=== PATIENT | female | born 1980 | race Two or more races ===

== ENCOUNTER 2016-12-16 13:08 | Emergency (ER) | payer OTHER ==
[~2016-12-16] VITALS: Ht 162.6 cm; Wt 74.8 kg
[~2016-12-16 13:08] MED LIST: CLON0.5T3 PO; DESV50TA PO; ZOLP5TAB4 PO
--- NOTE | 2016-12-16 13:49 | EKG ---
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
[2016-12-16 13:51] LABS: NEG OBC UR NEG; POS OBC UR POS
--- NOTE | 2016-12-16 14:00 | RAD ---
EXAM: Chest, single view. HISTORY: Pain. COMPARISON: 07/30/2016. FINDINGS: A frontal view of the chest is obtained. There is no infiltrate, effusion or pneumothorax. The heart is normal in size. IMPRESSION: No acute pulmonary finding.
[2016-12-16 14:01] LABS: BACTERIA,URINE FEW /HPF (0-FEW); BILIRUBIN,URINE NEGATIVE (NEG); GLUCOSE,URINE NEGATIVE (NEG); NITRITE,URINE NEGATIVE (NEG); PH,URINE 5.5; PROTEIN,URINE NEGATIVE (NEG-TRACE); SQUAMOUS EPITHELIAL CELL,UR MOD /LPF; UROBILINOGEN,URINE 0.2 mg/dL (0.2 mg/dL); WBC,URINE 0 /HPF (0-4)
[2016-12-16] MEDS ORDERED: ASPIRIN 325 MG TABLET PO ONE (14:15)
[2016-12-16] MEDS ORDERED: IBUP-1060 PO (15:09)
--- NOTE | 2016-12-16 15:09 | PHYS DOC ---
Past Medical History Past Medical History: Anxiety, Depression, Other Additional Past Medical Histor: panic attacks Past Surgical History: Other Additional Past Surgical Histo: right leg ORIF Alcohol Use: None Drug Use: None Adult General Chief Complaint Chief Complaint: CHEST PAIN [facility] HPI 35-year-old female who states she's presenting with chest pain that has been worsening for the last several days. She describes it as pleuritic type chest pain worse with deep breathing. She describes it being under her left breast. Patient denies any significant health problems. She currently rates her pain a 6 out of 10. Patient has not taken anything for her symptoms. She states she is an occasional smoker. She denies any history of premature cardiac in her mom and father. Review of Systems Review of Systems Constitutional: Denies fever or chills [] Eyes: Denies change in visual acuity, redness, or eye pain [] HENT: Denies nasal congestion or sore throat [] Respiratory: Denies cough or shortness of breath [] Cardiovascular: No additional information not addressed in HPI [] GI: Denies abdominal pain, nausea, vomiting, bloody stools or diarrhea [] : Denies dysuria or hematuria [] Musculoskeletal: Denies back pain or joint pain [] Integument: Denies rash or skin lesions [] Neurologic: Denies headache, focal weakness or sensory changes [] Endocrine: Denies polyuria or polydipsia [] Current Medications Current Medications Current Medications Medications (Trade) Dose Ordered Sig/[facility] Start Time Stop Time Status Last Admin Dose Admin Aspirin (Karma Aspirin) 325 mg 1X ONCE 12/16/16 14:15 12/16/16 14:16 DC 12/16/16 14:06 325 MG Allergies Allergies Allergies Coded Allergies Type Severity Reaction Last Updated Verified No Known Drug Allergies 04/14/14 No Physical Exam Physical Exam Constitutional: Well developed, well nourished, no acute distress, non-toxic appearance. [] HENT: Normocephalic, atraumatic, bilateral external ears normal, oropharynx moist, no oral exudates, nose normal. [] Eyes: PERRLA, EOMI, conjunctiva normal, no discharge. [] Neck: Normal range of motion, no tenderness, supple, no stridor. [] Cardiovascular:Heart rate regular rhythm, no murmur [] Lungs & Thorax: Bilateral breath sounds clear to auscultation [] Abdomen: Bowel sounds normal, soft, no tenderness, no masses, no pulsatile masses. [] Skin: Warm, dry, no erythema, no rash. [] Back: No tenderness, no CVA tenderness. [] Extremities: No tenderness, no cyanosis, no clubbing, ROM intact, no edema. [] Neurologic: Alert and oriented X 3, normal motor function, normal sensory function, no focal deficits noted. [] Psychologic: Affect normal, judgement normal, mood normal. [] Current Patient Data Vital Signs Vital Signs Date Time Temp Pulse Resp B/P Pulse Ox O2 Delivery O2 Flow Rate FiO2 12/16/16 15:11 71 16 91/57 100 Room Air 12/16/16 13:10 98.2 98.2 Lab Values Laboratory Tests Test 12/16/16 13:35 12/16/16 14:25 Urine Collection Type Void Urine Color Yellow Urine Clarity Clear Urine pH 5.5 Urine Specific [place] 1.010 Urine Protein Negativemg/dL (NEG-TRACE) Urine Glucose (UA) Negativemg/dL (NEG) Urine Ketones (Stick) Negativemg/dL (NEG) Urine Blood Large (NEG) Urine Nitrite Negative (NEG) Urine Bilirubin Negative (NEG) Urine Urobilinogen Dipstick 0.2mg/dL (0.2 mg/dL) Urine Leukocyte Esterase Negative (NEG) Urine RBC 3-5/HPF (0-2) Urine WBC 0/HPF (0-4) Urine Squamous Epithelial Cells Mod/LPF Urine Bacteria Few/HPF (0-FEW) Urine Mucus Mod/LPF Urine Test Negative (NEG) POC Troponin I 0.00ng/ml (<0.08) EKG EKG EKG is interpreted by me shows a sinus rhythm with a rate of 59 bpm. There are no acute ST findings. This is a nonischemic EKG. Radiology/Procedures Radiology/Procedures Portable one view of the chest does not reveal an acute cardiopulmonary abnormality as interpreted by me. Course & Med Decision Making Course & Med Decision Making Pertinent Labs and Imaging studies reviewed. (See chart for details) This 35-year-old female that had some significant chest pain is almost fully resolved after my reassessment will be discharged home to follow closely with her primary care doctor. Believe her symptoms are likely inflammatory in etiology. She does not have significant cardiac risk factors. She is an occasional smoker and for this reason I did recommend that she follow closely with her primary care doctor who can recommend further workup including stress testing. I did state if she develops any worsening of her pain to return to the ER immediately. She is very agreeable with this plan. A serum troponin drawn here was negative. She was discharged without incident with prescription for motrin. Dragon Disclaimer Dragon Disclaimer This electronic medical record was generated, in whole or in part, using a voice recognition dictation system. Departure Departure Impression: Primary Impression: Chest pain Disposition: HOME, SELF-CARE Admitting Physician: Other Condition: STABLE Referrals: NO PCP (PCP) Patient Instructions: Chest Wall Pain, [id number] Additional Instructions: Please take your motrin as needed for your chest pain. Follow up with your primary doctor in the next 2-3 days regarding your recent chest pain. Return to the ER if you develop any worsening of your symptoms. Scripts Ibuprofen 800 Mg [id number] Mg PO PRN Q6HRS PRN INFLAMMATION #20 TAB Prov:JAMEY AREVALO DO 12/16/16 JAMEY AREVALO DO Dec 16, 2016 15:09
[2016-12-16 15:11] VITALS: BP 91/57
== END 2016-12-16 15:17 | disposition home or self-care (01) ==
LOC: ER 13:08
DX: R07.1 Chest pain on breathing (principal); F17.200 Nicotine dependence, unspecified, uncomplicated; F32.9 Major depressive disorder, single episode, unspecified; F41.0 Panic disorder [episodic paroxysmal anxiety]
CPT/HCPCS: 71010; 81001; 81025; 84484; 93005; 99285-25

== ENCOUNTER 2018-01-25 23:35 | Emergency (ER) | payer SELFPAY, OTHER ==
[2018-01-26] MEDS: HYDROcodone/APAP 7.5/325MG 1 TAB TABLET PO (00:43)
== END 2018-01-26 00:44 | disposition home or self-care (01) ==
LOC: ER 23:35
DX: M54.41 Lumbago with sciatica, right side (principal); G89.29 Other chronic pain; F32.9 Major depressive disorder, single episode, unspecified; F41.0 Panic disorder [episodic paroxysmal anxiety]
CPT/HCPCS: 99283

== ENCOUNTER 2018-04-15 19:27 | Emergency (ER) | payer SELFPAY ==
[2018-04-15] MEDS: HYDROcodone/APAP 5/325MG 1 TAB TABLET PO (19:50)
== END 2018-04-15 19:56 | disposition home or self-care (01) ==
LOC: ER 19:27
DX: M77.9 Enthesopathy, unspecified (principal); Z79.891 Long term (current) use of opiate analgesic
CPT/HCPCS: 29125; 99283

== ENCOUNTER 2018-09-22 07:27 | Emergency (ER) | payer SELFPAY ==
[~2018-09-22] VITALS: Ht 157.5 cm; Wt 74.8 kg
[~2018-09-22 07:27] MED LIST changes: +CLON0.5T11 PO; -CLON0.5T3 PO; +CYCL10TA2 PO; +IBUP-1060 PO; +NAPR-514 PO; +TRAM50TA PO; -ZOLP5TAB4 PO; +ZOLP5TAB5 PO
[2018-09-22 07:37] VITALS: BP 104/62
--- NOTE | 2018-09-22 08:25 | RAD ---
Right elbow 3 views. HISTORY: Pain radiating towards proximal and distal arm, right elbow pain 3 views were taken of the right elbow. There is no fracture or dislocation or acute osseous abnormality. IMPRESSION: 1. Negative right elbow. Electronically signed by: Redd Josue MD (09/22/2018 8:22 AM) [facility]
[2018-09-22] MEDS ORDERED: KETOROLAC 60 MG/2 ML INJ. IM ONE (08:30)
[2018-09-22] MEDS ORDERED: methylPREDNISolone SOD SUCC PF 125 MG/2 ML VIAL. IM ONE (08:30)
[2018-09-22] MEDS ORDERED: TRAM50TA PO (09:24)
[2018-09-22] MEDS ORDERED: PRED20TA PO (09:24)
[2018-09-22] MEDS ORDERED: IBUP-1007 PO (09:24)
--- NOTE | 2018-09-22 09:24 | PHYS DOC ---
Past Medical History Past Medical History: Anxiety, Depression, Other Additional Past Medical Histor: panic attacks Past Surgical History: Other Additional Past Surgical Histo: Right leg ORIF Alcohol Use: None Drug Use: None Adult General Chief Complaint Chief Complaint: WRIST PAIN HPI HPI Patient is a 37 year old female presented to ER today for evaluation of right elbow pain, right forearm pain since waking up this morning. Patient denies any injury. Patient denies any fever, no weakness or numbness in her extremity. 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 She says she had been chopping food at work. Patient described the pain is aching in nature, burning sensation. She denies any neck pain. Review of Systems Review of Systems Constitutional: Denies fever or chills [] Eyes: Denies change in visual acuity, redness, or eye pain [] HENT: Denies nasal congestion or sore throat [] Respiratory: Denies cough or shortness of breath [] Cardiovascular: No additional information not addressed in HPI [] GI: Denies abdominal pain, nausea, vomiting, bloody stools or diarrhea [] : Denies dysuria or hematuria [] Musculoskeletal: RIGHT FOREARM , ELBOW PAIN. Integument: Denies rash or skin lesions [] Neurologic: Denies headache, focal weakness or sensory changes [] Endocrine: Denies polyuria or polydipsia [] All other systems were reviewed and found to be within normal limits, except as documented in this note. Current Medications Current Medications Current Medications Medications (Trade) Dose Ordered Sig/[facility] Start Time Stop Time Status Last Admin Dose Admin Ketorolac Tromethamine (Toradol Im) 60 mg 1X ONCE 09/22/18 08:30 09/22/18 08:31 DC 09/22/18 07:57 60 MG Methylprednisolone Sodium Succinate (SOLU-Medrol 125MG VIAL) 125 mg 1X ONCE 09/22/18 08:30 09/22/18 08:31 DC 09/22/18 07:57 125 MG Allergies Allergies Allergies Coded Allergies Type Severity Reaction Last Updated Verified No Known Drug Allergies 04/14/14 No Physical Exam Physical Exam Constitutional: Well developed, well nourished, no acute distress, non-toxic appearance. [] HENT: Normocephalic, atraumatic, bilateral external ears normal, oropharynx moist, no oral exudates, nose normal. [] Eyes: PERRLA, EOMI, conjunctiva normal, no discharge. [] Neck: Normal range of motion, no tenderness, supple, no stridor. [] Cardiovascular:Heart rate regular rhythm, no murmur [] Lungs & Thorax: Bilateral breath sounds clear to auscultation [] Abdomen: Bowel sounds normal, soft, no tenderness, no masses, no pulsatile masses. [] Skin: Warm, dry, no erythema, no rash. [] Back: No tenderness, no CVA tenderness. [] Extremities: The right forearm, right elbow is tender to palpation, there is no swelling, no redness. There is strong radial and ulnar pulses. There is no focal neurovascular deficit. The forearm muscle is tender to touch. Neurologic: Alert and oriented X 3, normal motor function, normal sensory function, no focal deficits noted. [] Psychologic: Affect normal, judgement normal, mood normal. [] Current Patient Data Vital Signs Vital Signs Date Time Temp Pulse Resp B/P (MAP) Pulse Ox O2 Delivery O2 Flow Rate FiO2 09/22/18 07:37 98.1 53 18 104/62 (76) 99 Room Air 98.1 EKG EKG [] Radiology/Procedures Radiology/Procedures [][facility] [address] [facility] [place] [address] IMAGING REPORT Signed PATIENT: CUCO REN ACCOUNT: [id number] : 1980 LOCATION: ER AGE: 37 SEX: F EXAM STATUS: REG ER ORD. PHYSICIAN: HUSSEIN AMEZCUA DO REASON: RIGHT ELBOW PAIN PROCEDURE: ELBOW RIGHT 3V Right elbow 3 views. HISTORY: Pain radiating towards proximal and distal arm, right elbow pain 3 views were taken of the right elbow. There is no fracture or dislocation or acute osseous abnormality. IMPRESSION: 1. Negative right elbow. Electronically signed by: Redd Alvarado MD (09/22/2018 8:22 AM) [facility] DICTATED and SIGNED BY: REDD ALVARADO MD DATE: 09/22/18820 Course & Med Decision Making Course & Med Decision Making Pertinent Labs and Imaging studies reviewed. (See chart for details) [] Dragon Disclaimer Dragon Disclaimer This electronic medical record was generated, in whole or in part, using a voice recognition dictation system. Departure Departure Impression: Primary Impression: Myalgia Disposition: 01 HOME, SELF-CARE Condition: STABLE Referrals: NO PCP (PCP) FOLLOW UP WITH YOUR FAMILY DOCTOR NEXT WEEK FOR REEVALAUTION. Patient Instructions: Myalgia, Adult Scripts Ibuprofen (IBUPROFEN) 600 Mg Tablet 600 MG PO PRN Q8HRS PRN for INFLAMMATION, #30 TAB Prov: HUSSEIN AMEZCUA DO 09/22/18 Tramadol Hcl (TRAMADOL HCL) 50 Mg Tablet 1 MG PO QID PRN for PAIN, #15 TAB 0 Refills Prov: HUSSEIN AMEZCUA DO 09/22/18 Prednisone (PREDNISONE) 20 Mg Tablet 1 TAB PO DAILY, #10 TAB Prov: HUSSEIN AMEZCUA DO 09/22/18 HUSSEIN AMEZCUA DO Sep 22, 2018 09:24
== END 2018-09-22 09:47 | disposition home or self-care (01) ==
LOC: ER 07:27
DX: M79.631 Pain in right forearm (principal); M25.521 Pain in right elbow; M79.18 Myalgia, other site; F41.9 Anxiety disorder, unspecified; F32.9 Major depressive disorder, single episode, unspecified
CPT/HCPCS: 73080; 96372; 99284; J1885; J2930

== ENCOUNTER 2019-01-01 01:59 | Emergency (ER) | payer SELFPAY ==
[~2019-01-01] VITALS: Ht 154.9 cm; Wt 81.2 kg
[~2019-01-01 01:59] MED LIST changes: +IBUP-1007 PO; +PRED20TA PO
[2019-01-01 02:20] VITALS: BP 125/86
[2019-01-01] MEDS ORDERED: HYDR25TA PO (02:40)
--- NOTE | 2019-01-04 22:03 | PHYS DOC ---
Past Medical History Past Medical History: Anxiety, Depression, Other Additional Past Medical Histor: panic attacks Past Surgical History: Other Additional Past Surgical Histo: Right leg ORIF Alcohol Use: None Drug Use: None Adult General Chief Complaint Chief Complaint: ANXIETY/PANIC ATTACK HPI HPI Patient is a 38 year old spitting female with history of anxiety, panic attacks who presents with complaints of insomnia for 2 days increasing anxiety over the past several days. No HI SI. No chest pain palpitations, shortness of breath. No medications or therapy sticking prior to ED arrival. Eyes drugs and alcohol. [] Review of Systems Review of Systems Review symptoms as per history of present illness. All other review symptoms are negative. All other systems were reviewed and found to be within normal limits, except as documented in this note. Allergies Allergies Allergies Coded Allergies Type Severity Reaction Last Updated Verified No Known Drug Allergies 04/14/14 No Physical Exam Physical Exam Constitutional: Well developed, well nourished, no acute distress, non-toxic appearance. [] HENT: Normocephalic, atraumatic, bilateral external ears normal, oropharynx moist, nose normal. [] Eyes: PERRLA, EOMI, conjunctiva normal, no discharge. [] Neck: Normal range of motion, no tenderness, supple, no stridor. [] Cardiovascular:Heart rate regular rhythm, no murmur [] Lungs & Thorax: Bilateral breath sounds clear to auscultation [] Neurologic: Alert and oriented X 3, normal motor function, normal sensory function, no focal deficits noted. [] Psychologic: Affect flat, judgement normal, no HI or SI.[] Current Patient Data Vital Signs Vital Signs Date Time Temp Pulse Resp B/P (MAP) Pulse Ox O2 Delivery O2 Flow Rate FiO2 01/01/19 02:20 98.3 97 18 125/86 (99) 97 Room Air 98.3 Lab Values Laboratory Tests Test 01/01/19 02:28 POC Urine HCG, Qualitative Hcg negative (Negative) EKG EKG [] Radiology/Procedures Radiology/Procedures [] Course & Med Decision Making Course & Med Decision Making Pertinent Labs and Imaging studies reviewed. (See chart for details) [Recommend supportive care with PCP follow-up.] Dragon Disclaimer Dragon Disclaimer This electronic medical record was generated, in whole or in part, using a voice recognition dictation system. Departure Departure Impression: Primary Impression: Anxiety state, unspecified Disposition: 01 HOME, SELF-CARE Condition: GOOD Patient Instructions: Anxiety and Panic Attacks, [id number] Additional Instructions: Please fill prescription medication upon leaving the ER and take first dose of Atarax upon returning home. Follow-up with your primary care doctor tomorrow for further evaluation. Scripts Hydroxyzine Hcl (HYDROXYZINE HCL) 25 Mg Tablet 1 TAB PO TID, #10 TAB Prov: DELMIS GARCIA DO 01/01/19 DELMIS GARCIA DO Jan 04, 2019 22:03
== END 2019-01-01 03:13 | disposition home or self-care (01) ==
LOC: ER 01:59
DX: F41.9 Anxiety disorder, unspecified (principal); G47.00 Insomnia, unspecified; F32.9 Major depressive disorder, single episode, unspecified
CPT/HCPCS: 81025; 99284

== ENCOUNTER 2019-04-29 00:16 | Emergency (ER) | payer SELFPAY ==
[~2019-04-29] VITALS: Ht 152.4 cm; Wt 81.2 kg
[~2019-04-29 00:16] MED LIST changes: +HYDR25TA PO
[2019-04-29 00:20] VITALS: BP 125/87
--- NOTE | 2019-04-29 00:52 | PHYS DOC ---
Past Medical History Past Medical History: Anxiety, Depression, Other Additional Past Medical Histor: panic attacks Past Surgical History: Other Additional Past Surgical Histo: Right leg ORIF Alcohol Use: None Drug Use: None Adult General Chief Complaint Chief Complaint: ANXIETY/PANIC ATTACK HPI HPI Patient is a 38 year old female with history of anxiety, depression, who presents today complaining of anxiety attack. Patient states she is on clonazepam, she states she ran out of the medication a couple days ago and does not have an appointment with her own PCP until 02 May 2019. She is requesting a refill for clonazepam. Denies any chest pain. Denies any shortness of breath. Denies any suicidal or homicidal ideations. Review of Systems Review of Systems Constitutional: Denies fever or chills [] Eyes: Denies change in visual acuity, redness, or eye pain [] HENT: Denies nasal congestion or sore throat [] Respiratory: Denies cough or shortness of breath [] Cardiovascular: No additional information not addressed in HPI [] GI: Denies abdominal pain, nausea, vomiting, bloody stools or diarrhea [] : Denies dysuria or hematuria [] Musculoskeletal: Denies back pain or joint pain [] Integument: Denies rash or skin lesions [] Neurologic: Denies headache, focal weakness or sensory changes [] Psych:anxiety attack All other systems were reviewed and found to be within normal limits, except as documented in this note. Current Medications Current Medications Current Medications Medications (Trade) Dose Ordered Sig/[facility] Start Time Stop Time Status Last Admin Dose Admin Clonazepam (KlonoPIN) 1 mg 1X STAT 04/29/19 00:47 04/29/19 00:48 UNV Allergies Allergies Allergies Coded Allergies Type Severity Reaction Last Updated Verified No Known Drug Allergies 04/14/14 No Physical Exam Physical Exam Constitutional: Well developed, well nourished, no acute distress, non-toxic appearance. [] HENT: Normocephalic, atraumatic, bilateral external ears normal, oropharynx moist, no oral exudates, nose normal. [] Eyes: PERRLA, EOMI, conjunctiva normal, no discharge. [] Neck: Normal range of motion, no tenderness, supple, no stridor. [] Cardiovascular:Heart rate regular rhythm, no murmur [] Lungs & Thorax: Bilateral breath sounds clear to auscultation [] Abdomen: Bowel sounds normal, soft, no tenderness, no masses, no pulsatile masses. [] Skin: Warm, dry, no erythema, no rash. [] Back: No tenderness, no CVA tenderness. [] Extremities: No tenderness, no cyanosis, no clubbing, ROM intact, no edema. [] Neurologic: Alert and oriented X 3, normal motor function, normal sensory function, no focal deficits noted. [] Psychologic: Affect normal, judgement normal, mood normal. [] Current Patient Data Vital Signs Vital Signs Date Time Temp Pulse Resp B/P (MAP) Pulse Ox O2 Delivery O2 Flow Rate FiO2 04/29/19 00:20 98.1 57 18 125/87 (100) 100 Room Air 98.1 EKG EKG [] Radiology/Procedures Radiology/Procedures [] Course & Med Decision Making Course & Med Decision Making Pertinent Labs and Imaging studies reviewed. (See chart for details) This is a 12-year-old female patient with history of anxiety, depression, who presents to the ED today requesting a refill of clonazepam. Offered patient a dose of the medication in the ED and requested that follow-up with her own PCP. She is not suicidal, she is not homicidal. She is stable for discharge to home. Dragon Disclaimer Dragon Disclaimer This electronic medical record was generated, in whole or in part, using a voice recognition dictation system. Departure Departure Impression: Primary Impression: Anxiety state, unspecified Disposition: HOME, SELF-CARE Condition: STABLE Referrals: NO PCP (PCP) Follow-up with your doctor in 1-2 weeks Patient Instructions: Anxiety and Panic Attacks Additional Instructions: You were evaluated in the emergency room for anxiety. Please follow-up with your doctor for medication refills. DAMON LUA CUSTODIAN Apr 29, 2019 00:52
[2019-04-29] MEDS ORDERED: clonazePAM 0.5 MG TABLET PO ONE (01:00)
== END 2019-04-29 01:05 | disposition home or self-care (01) ==
LOC: ER 00:16
DX: F41.9 Anxiety disorder, unspecified (principal); F32.9 Major depressive disorder, single episode, unspecified
CPT/HCPCS: 99284

== ENCOUNTER 2019-05-31 02:02 | Emergency (ER) | payer SELFPAY ==
[~2019-05-31] VITALS: Ht 152.4 cm; Wt 75.7 kg
[2019-05-31 02:21] VITALS: BP 143/86
[2019-05-31] MEDS ORDERED: IV NORMAL SALINE 1000ML BAG 1,000 ML IV ONE (02:30)
[2019-05-31] MEDS ORDERED: KETOROLAC 15 MG/ML VIAL. IV ONE (02:30)
[2019-05-31] MEDS ORDERED: METOCLOPRAMIDE HCL 10 MG/2 ML VIAL. IV ONE (02:30)
[2019-05-31] MEDS ORDERED: diphenhydrAMINE 50 MG/ML VIAL IVP ONE (02:30)
[2019-05-31] MEDS ORDERED: DEXAMETHASONE SOD PHOS 20 MG/5 ML VIAL. IV ONE (02:30)
--- NOTE | 2019-05-31 02:47 | PHYS DOC ---
Past Medical History Past Medical History: Anxiety, Depression, Other Additional Past Medical Histor: panic attacks Past Surgical History: Other Additional Past Surgical Histo: Right leg ORIF Smoking: Cigarettes Alcohol Use: None Drug Use: None Adult General Chief Complaint Chief Complaint: HEADACHE HPI HPI Patient is a 38-year-old female who presents with headache. She has no history of migraines. The headache started yesterday and has progressively gotten worse. The pain is located in the back of her head and does not radiate anywhere. She is describes it as a pressure sensation. She reports blurry vision, dizziness, nausea and vomiting. The pain is currently greater than a 10/10. She is having pain in her ears bilaterally, feeling like they are going to burst. She is tried Tylenol and it has not helped. Her last dose of Tylenol was 2 hours ago. This is the worst headache of her life. She has not had any head injury, fall, or trauma. Review of Systems Review of Systems Constitutional: Denies fever or chills Eyes: Denies redness or eye pain HENT: Denies nasal congestion or sore throat Respiratory: Denies cough or shortness of breath Cardiovascular: Denies chest pain or palpitations GI: Denies abdominal pain, reports nausea and vomiting : Denies dysuria or hematuria Musculoskeletal: Denies back pain or joint pain Integument: Denies rash or skin lesions Neurologic: Reports headache. Denies focal weakness or sensory changes Complete systems were reviewed and found to be within normal limits, except as documented in this note. Current Medications Current Medications Current Medications Medications (Trade) Dose Ordered Sig/[facility] Start Time Stop Time Status Last Admin Dose Admin Dexamethasone Sodium Phosphate (Decadron) 10 mg 1X ONCE 05/31/19 02:30 05/31/19 02:31 DC 05/31/19 02:45 10 MG Diphenhydramine HCl (Benadryl) 50 mg 1X ONCE 05/31/19 02:30 05/31/19 02:31 DC 05/31/19 02:45 50 MG Ketorolac Tromethamine (Toradol 15mg Vial) 15 mg 1X ONCE 05/31/19 02:30 05/31/19 02:31 DC 05/31/19 02:45 15 MG Metoclopramide HCl (Reglan Vial) 10 mg 1X ONCE 05/31/19 02:30 05/31/19 02:31 DC 05/31/19 02:45 10 MG Sodium Chloride 1,000 ml @ 1,000 mls/hr 1X ONCE 05/31/19 02:30 05/31/19 03:29 DC 05/31/19 02:44 1,000 MLS/HR Allergies Allergies Allergies Coded Allergies Type Severity Reaction Last Updated Verified No Known Drug Allergies 04/14/14 No Physical Exam Physical Exam Constitutional: Well developed, well nourished, in acute distress, non-toxic appearance HENT: Normocephalic, atraumatic, oropharynx moist, ears are nonerythematous with cone of light present on tympanic membrane Eyes: PERRL, EOMI, conjunctiva normal, no discharge Neck: Normal range of motion, no tenderness, supple Cardiovascular: Heart rate normal, regular rhythm Lungs & Thorax: Bilateral breath sounds clear to auscultation, no wheezing Abdomen: Soft, no tenderness Skin: Warm, dry, no erythema, no rash Back: No tenderness, no CVA tenderness Extremities: No tenderness, ROM intact, no edema Neurologic: Alert and oriented X 3, normal motor function, normal sensory function, no focal deficits noted Psychologic: Affect normal, judgement normal, mood normal Current Patient Data Vital Signs Vital Signs Date Time Temp Pulse Resp B/P (MAP) Pulse Ox O2 Delivery O2 Flow Rate FiO2 05/31/19 02:21 97.8 55 18 143/86 (105) 99 Room Air 97.8 EKG EKG [] Radiology/Procedures Radiology/Procedures [] Course & Med Decision Making Course & Med Decision Making Pertinent Lab studies reviewed. (See chart for details) Ms. Sullivan is a 38-year-old female who presents with headache. She has never had a migraine before. Her headache started yesterday and is localized in the back of her head and is associated with photophobia, blurry vision, dizziness, nausea, and vomiting. This is the worst headache of her life.. She has not had a fall, or trauma. Physical exam. HEENT exam is within normal limits, and she is neurologically intact. She was given dexamethasone, Benadryl, Toradol, and Reglan and her symptoms improved. She is discharged home with zofran and Butalbital/Acetaminophen/Caffeine, and is given information to follow up with a neurologist. Patient stable for discharge with outpatient follow-up with PCP. Discussed findings and plan with patient and family, who acknowledge understanding and agreement. [] Dragon Disclaimer Dragon Disclaimer This electronic medical record was generated, in whole or in part, using a voice recognition dictation system. Departure Departure Impression: Primary Impression: Headache Disposition: 01 HOME, SELF-CARE Condition: IMPROVED Referrals: NO PCP (PCP) MARIA ESTHER ALVAREZ MD Patient Instructions: Headache, FAQs Scripts Ondansetron (ONDANSETRON ODT) 4 Mg Tab.rapdis 1 TAB PO PRN Q6-8HRS PRN for NAUSEA, #16 TAB Prov: WALTER MCMULLEN DO 05/31/19 Butalb/Acetaminophen/Caffeine ([id number] 50-325-40) 1 Each Tablet 1 EACH PO Q6HRS PRN for HEADACHE, #14 TAB Prov: WALTER MCMULLEN DO 05/31/19 Problem Qualifiers Primary Impression: Headache Headache type: unspecified Headache chronicity pattern: acute headache Intractability: not intractable Qualified Codes: R51 - Headache WALTER MCMULLEN DO May 31, 2019 02:47
[2019-05-31] MEDS ORDERED: ONDA4TAB12 PO (03:40)
[2019-05-31] MEDS ORDERED: BUTA1TAB23 PO (03:40)
== END 2019-05-31 03:50 | disposition home or self-care (01) ==
LOC: ER 02:02
DX: R51 Headache (principal); R11.2 Nausea with vomiting, unspecified; R42 Dizziness and giddiness; H53.8 Other visual disturbances; F41.9 Anxiety disorder, unspecified; F32.9 Major depressive disorder, single episode, unspecified; F17.210 Nicotine dependence, cigarettes, uncomplicated
CPT/HCPCS: 96361; 96374; 96375; 99284; J1100; J1200; J1885; J2765; J7030